=== PATIENT | female | born 1985 | race African-American/Black ===

== ENCOUNTER 2016-08-08 13:06 | Emergency (ER) | payer OTHER ==
[~2016-08-08] VITALS: Ht 172.7 cm; Wt 86.2 kg
[~2016-08-08 13:06] MED LIST: IMITREX25 MG PO; MOTRIN600 MG PO; NORVASC5 MG PO; PRAVASTATIN SOD20 MG PO; REGLAN10 MG PO; REGLAN5 MG PO; TRAMADOL HCL50 MG PO; ULTRACET1 TABLET PO; ULTRAM50 MG PO
[2016-08-08 13:55] LABS: HEMATOCRIT 43.2 % (36.0-46.0); MCH 30.3 PG (29.0-34.0); MCHC 33.6 G/DL (30.0-36.0); MCV 90.4 FL (83-99); MEAN PLAT.VOLUME 9.9 uM^3 (9.5-12.4); PLATELET COUNT 246 K/uL (156-360); RED BLOOD COUNT 4.78 M/uL (3.80-5.20); WHITE BLOOD COUNT 10.7 K/uL (4.1-10.2)
[2016-08-08 14:06] LABS: CHLORIDE 102 mEq/L (99-109); POTASSIUM 4.1 mEq/L (3.7-5.4)
[2016-08-08 14:07] LABS: SODIUM 138 mEq/L (136-147)
[2016-08-08 14:09] LABS: GLUCOSE 103 mg/dL (70-99)
[2016-08-08 14:10] LABS: ANION GAP 12 MEQ/L (2-14)
[2016-08-08 14:11] LABS: TOTAL BILIRUBIN 0.8 mg/dL (0.0-1.0)
[2016-08-08 14:11] LABS: ADD MIUA? YES; BILIRUBIN NEGATIVE; BLOOD SMALL; COLOR YELLOW ((YELLOW)); GLUCOSE (STRIP) NEGATIVE; KETONES NEGATIVE; LEUKOCYTES LARGE; NITRITE NEGATIVE; PROTEIN (STRIP) 100; SPECIFIC GRAVITY 1.011 (1.000-1.030); UROBILINOGEN 0.2 MG/DL (0.2-1.0)
[2016-08-08 14:12] LABS: ALKALINE PHOSPHATASE 78 IU/L (3-129); GFR ESTIMATE (CALCULATED) > 59 mL/min/
[2016-08-08 14:14] LABS: UREA NITROGEN (BUN) 9 mg/dL (9-23)
[2016-08-08 14:21] LABS: QUANTITATIVE HCG < 4.0 MIU/ML
[2016-08-08 14:41] LABS: BACTERIA 1+ /HPF; EPITHELIAL CELLS 1+ /HPF; MUCUS NONE SEEN /LPF; RED BLOOD CELLS RARE /HPF (0-5); UCUL ADDED? YES; WHITE BLOOD CELLS TNTC /HPF (0-5)
[2016-08-08] MEDS ORDERED: LEVAQUIN750 MG PO (14:42)
[2016-08-08 15:30] VITALS: BP 137/101
== END 2016-08-08 15:31 | disposition home or self-care (01) ==
LOC: EME 13:06
DX: N12 Tubulo-interstitial nephritis, not specified as acute or chronic (principal); M79.7 Fibromyalgia; E78.5 Hyperlipidemia, unspecified; I10 Essential (primary) hypertension; F17.200 Nicotine dependence, unspecified, uncomplicated
CPT/HCPCS: 76770; 80053; 81003; 84702; 85027; 87077; 87086; 87186; 99281; 99284